=== PATIENT | female | born 1955 | race Caucasian/White ===

== ENCOUNTER 2023-01-30 12:45 | Emergency (ER) | payer MEDICARE, OTHER, SELFPAY ==
[2023-01-30 13:00] VITALS: BP 101/64; PULSE 113; RESP 16; TEMP 37.3; O2SAT 98; BMI 34.4
--- NOTE | 2023-01-30 13:36 | ED.GENADULT ---
HPI - General Adult General Date Seen: 01/30/23 Chief complaint: Abdominal Pain Stated complaint: Diverticulitis, possible perforated bowel Time Seen by Provider: 01/30/23 13:11 History of Present Illness HPI narrative: This is a very pleasant 67-year-old female with a past medical history including hypertension, colon polyps, previous esophageal stricture, sleep apnea, overweight, allergic rhinitis. She was referred to the ER today from the clinic at [facility]. She was diagnosed with perforated sigmoid diverticulitis on a CT scan done in the outpatient clinic today. HPI is that she did have symptoms of diarrhea that were few weeks ago, probably 3 weeks ago. This occurred while she was in the [facility]. Her is in the hospital after a major surgery. Since then her diarrhea has resolved but she has had ongoing fatigue. Not much abdominal pain. She is just feeling run down. Maybe mild discomfort in her left lower quadrant and suprapubic region. No fevers. She has lost about 10 lb because she has had poor appetite. No urinary symptoms. She has no previous history of diverticulitis. Laboratory workup in the [facility] today included: Urinalysis: Specific gravity 1.020 Trace bilirubin, trace ketones, negative nitrite, negative leukocyte esterase. 0-2 RBC, 3-5 WBC. Few bacteria. Moderate epithelial cells. White blood cell count 3.32., hemoglobin 10.0, platelet count 545. CT abdomen/pelvis stone protocol without contrast Printed report from [facility]. Gallbladder and bile ducts: Post cholecystectomy. No biliary ductal dilatation. Pancreas unremarkable. Spleen: Normal in size. No masses. Adrenal glands: Normal in size. No nodules. Kidneys: No hydronephrosis or hydroureter. No right renal or ureteral calculi. GI tract: Extensive sigmoid colon diverticula with bowel wall thickening and pericolonic inflammatory stranding in the pelvis. There is an irregular collection measuring 4.7 x 2.2 cm, which is greater than fluid attenuation, likely reflecting phlegmon. Foci of extraluminal gas is seen adjacent to the sigmoid colon. Concerning for perforation. There are scattered pericolonic sub cm lymph nodes. The appendix is not well visualized. Vasculature: Minimal atherosclerotic are aortic calcifications without aneurysmal dilatation. Lymph nodes: Scattered subcentimeter retroperitoneal lymph nodes. Peritoneum/abdominal wall: Small fat containing umbilical hernia. Pelvis: Bladder is decompressed. Uterus is surgically absent. Bones: Unremarkable for age. Severe multilevel degenerative disc disease involving the visualized thoracolumbar spine, most pronounced at L5-S1. Impression: 1. acute sigmoid colon diverticulitis with evidence of perforation. There is inflammatory stranding/phlegmon without definite organized abscess, although evaluation is limited on noncontrast exam. 2. No obstructing renal or ureteral calculi. 3. Hepatic steatosis. Related Data Home Medications Medication Instructions Recorded Confirmed atorvastatin 40 mg tablet 40 mg PO QPM 01/30/23 01/30/23 hydrochlorothiazide 25 mg tablet 25 mg PO DAILY 01/30/23 01/30/23 lisinopril 40 mg tablet 40 mg PO DAILY 01/30/23 01/30/23 metoprolol succinate 200 mg 200 mg PO DAILY 01/30/23 01/30/23 tablet,extended release 24 hr omeprazole 20 mg capsule,delayed 20 mg PO DAILY 01/30/23 01/30/23 release Allergies Allergy/AdvReac Type Severity Reaction Status Date / Time penicillin G Allergy Intermediate Rash Verified 01/30/23 12:59 PFSH PFS Social History Smoking Status: Never smoker Non-prescribed substance use: denies use Exam Narrative: Exam Narrative: Constitutional: Appears well-developed and well-nourished. Alert. Conversant. Non toxic. HENT: Head: Atraumatic. Nose: Nose normal. Mouth/Throat: Oral mucosa is clear and moist. no trismus. Pharynx normal. Tonsils symmetric. No tonsillar enlargement, erythema, or exudate. Eyes: Conjunctivae normal. EOM normal. Pupils equal, round, and reactive to light. No scleral icterus. Neck: Normal range of motion. Neck supple. No tracheal deviation present. Cardiovascular: Tachycardic, regular rhythm. No gallop. No friction rub. No murmur heard. Symmetric radial artery pulses Pulmonary/Chest: Effort normal. No stridor. No respiratory distress. No wheezes. No rales. No rhonchi . No tenderness. Abdominal: Soft. Bowel sounds normal. No distension. No mass. Left lower quadrant and suprapubic tenderness. No rebound. No guarding. Musculoskeletal: RUE: Normal range of motion. No tenderness. No deformity LUE: Normal range of motion. No tenderness. No deformity RLE: Normal range of motion. No edema. No tenderness. No deformity LLE: Normal range of motion. No edema. No tenderness. No deformity. no cva tenderness Neurological: Alert and oriented to person, place, and time. Normal strength. CN II-VII intact. No sensory deficit. GCS eye subscore is 4. GCS verbal subscore is 5. GCS motor subscore is 6. Normal coordination Skin: Skin is warm and dry. No rash noted. No pallor. Normal capillary refill. Psychiatric: Normal mood. Normal affect. Const: Vital Signs, click to edit/add: Vital Signs - 24 hr 01/30/23 13:00 01/30/23 16:07 Temperature 99.1 F 98.9 F Pulse Rate [Pulse Oximeter] 113 H 110 H Respiratory Rate 16 16 Blood Pressure [Ri ght Upper Arm] 101/64 154/99 H Pulse Oximetry 98 96 Oxygen Delivery Me thod Room Air Course Course ED Course: Patient arrived in his room to ER room 7. I reviewed the provided labs and CT report from [facility] see my HPI. Reevaluation(s) Reevaluation #1: Discussed the surgery, Dr. Harrington. She has been able to review the images remotely in feels that the patient would be appropriate for admission here for IV antibiotics and observation. The patient would be at risk for progression to hyun abscess and may ultimately need surgery. However no clear abscess today and initial step would be admission for IV antibiotics. Agrees with Carly, given allergy. Reevaluation #2: Discussed with Dr. Fitzgerald, hospitalist. She will graciously admit to the medical floor for IV fluids, IV antibiotics, surgery consultation, monitoring. Reevaluation #3: Patient's daughter and arrived. I had a discussion with the patient, her , her daughter. After some extended conversation between the 4 of us as well as an extended family conversation, the patient's 2 daughters have expressed their firm desire that they want to have her mother transferred to a bigger facility, such as [facility]. I contacted [facility] transfer center. Discussed with the transfer center and me requested a medical bed for medical admission for IV antibiotics. Unfortunately there are no open beds at this time and the patient is placed on the wait list. The transfer center at cannot tell me how many other patients are head of my patient, but there are, ?quite a few ? And that most likely there will not be an available bed at any [facility] site toda. possibly tomorrow though. She has received her 1st dose of Cipro. Flagyl now beginning. Updated the patient and her family. They had another family meeting. Her daughter's really would like her to be at [facility], and not here in [place]. We discussed the wait list and the current status of transfer (waiting for a bed). I offered that we could still go ahead and admit the patient here to our medical floor overnight tonight for IV antibiotics, monitoring, comfort, while we keep her on the wait list for [facility]. We could transfer tomorrow if/when a bed at [facility] becomes available. However, the patient's family are insisting on transferring as soon as possible this afternoon. They would at least agree to have her mother stay here long enough to finish up her 1st dose of IV antibiotics. I discussed that I cannot do a direct ER to ER transfer for this indication. There is not a medical emergency necessitating an immediate ER to ER transfer, and that direct transfer to the ER just to avoid the wait list is not typical. We also had an honest discussion that there would likely be a many hour wait in the lobby of the [facility] ER before they could even be seen by a provider. After that they would likely have a many hour wait in the ER at [place] before they can be admitted to a medical bed. We discussed that her next dose of Flagyl would be about 6 hours from now, and that subsequent doses are antibiotic might be delayed while she is in the lobby at [place]. Nonetheless, her family are firm that they want to transfer by private car as soon as possible. They do not want to wait. It is clear that the patient and her family are medically savvy and have medical decision-making capacity to refuse my recommended admission here at [place]. They also seem very reliable. I am confident that they will go directly to the ER at [place] to begin the process of being admitted there. We agree that it would be reasonable to leave her current saline lock in place so that she can have her further workup and antibiotics. I contacted the [facility] access center again. I updated them about the status of the patient's transfer. The access center understands that the patient and her family are choosing to leave [facility] and go directly to the [facility] ER. I also requested to give a doctor to doctor direct report to the ED providers at [facility]. I was transferred through to the [facility] Emergency Department and discussed with 1 of their clinics. They declined to give me access to a provider for a doc to doc report. We will provide printed copies of the patient's labs to go with her. The patient's CT scan was done today in in [facility] clinic so that should be visible electronically to the providers at [place]. At this point the patient remains tachycardic with sinus tach. However blood pressure is stable. Lactic [place] [address], consistent with infection of perforated diverticulitis. There certainly would be some risk with transferring by private car and anticipated long wait in the ER, given the potential for developing sepsis and subsequent cardiovascular deterioration. Nonetheless, patient and her family have medical decision-making capacity and they are requesting to be discharged as soon as possible from the ER here in [place] so they can go to [facility]. I updated our surgeon, Dr. Antoine and our hospitalist, Dr. Fitzgerald Vital Signs Vital signs: Initial Vital Signs Temperature 99.1 F 01/30/23 13:00 Temperature Source Temporal Artery Scan 01/30/23 13:00 Pulse Rate 113 H 01/30/23 13:00 Pulse Rhythm Regular 01/30/23 13:00 Respiratory Rate 16 01/30/23 13:00 Blood Pressure 101/64 01/30/23 13:00 Blood Pressure Mean 76 01/30/23 13:00 Blood Pressure Position Sitting 01/30/23 13:00 Pulse Oximetry 98 01/30/23 13:00 Oxygen Delivery Method Room Air 01/30/23 13:00 Vital Signs Temperature 99.1 F 01/30/23 13:00 Pulse Rate 113 H 01/30/23 13:00 Respiratory Rate 16 01/30/23 13:00 Blood Pressure 101/64 01/30/23 13:00 Pulse Oximetry 98 01/30/23 13:00 Oxygen Delivery Method Room Air 01/30/23 13:00 Temperature 98.9 F 01/30/23 16:07 Pulse Rate 110 H 01/30/23 16:07 Respiratory Rate 16 01/30/23 16:07 Blood Pressure 154/99 H 01/30/23 16:07 Pulse Oximetry 96 01/30/23 16:07 Oxygen Delivery Method Room Air 01/30/23 13:00 Medical Decision Making MDM Narrative Medical decision making narrative: This is a very pleasant 67-year-old female sent to the ER today with lab and CT confirmed sigmoid diverticulitis associated with perforation and phlegmon formation. She was tachycardic but normotensive. Lactic acid normal . She received IV fluid bolus and initial broad-spectrum antibiotics here in the ER for her intra-abdominal infection. Discussed with our surgeon and our hospitalist. Plan was to admit here for IV fluids and IV antibiotics with careful observation. Surgery says no immediate indication for operative intervention. There is risk that she may ultimately need surgery or IR drainage, depending on her her illness/phlegmon progress. Patient initially verbalized her consent to be admitted here in [place]. Subsequently her family arrived. They have requested transfer to a larger facility. We contacted [facility]. There was a long wait list for patients and no beds available today. Therefore her family have insisted on expeditious discharge from the ER here in [place]. They will take the patient by private car and check her into the ER at [facility]. They do not want us to keep her here in the ER or in the hospital in [place] overnight for fluids and antibiotics/initial phase of management. They want to transfer right away this afternoon. It will transfer by private car. I agreed it was appropriate to leave her IV and, since she will certainly need further fluids and antibiotics when she arrives. Lab Data Labs: Lab Results 01/30/23 Range/Units 13:15 WBC 21.93 H (4.50-11.00) K/uL RBC 3.53 L (4.00-5.20) m/uL Hgb 10.5 L (12.0-16.0) gm/dL Hct 32.7 L (33.0-51.0) % MCV 93 (80-100) fL MCH 30 (26-34) pg MCHC 32 (32-36) gm/dL RDW Coeff of Jailyn 12.9 (11.5-15.5) % Plt Count 603 H (140-440) K/uL Neut % (Auto) 78.2 H (42.0-72.0) % Lymph % (Auto) 11.0 L (20-44) % Tate % (Auto) 9.5 (0.0-11.0) % Eos % (Auto) 0.0 (0.0-7.0) % Baso % (Auto) 0.2 (0.0-3.0) % Neut # (Auto) 17.10 H (1.7-7.0) K/uL Lymph # (Auto) 2.40 (0.90-2.90) K/uL Tate # (Auto) 2.10 H (0.00-0.90) K/UL Eos # (Auto) 0.00 (0.00-0.50) K/uL Baso # (Auto) 0.00 (0.00-0.30) K/uL Abs Immat Gran (auto) 0.20 (0.00-0.30) K/uL Imm/Tot Granulo (auto) 1.1 % Diff Slide Review Acceptable Review (Acceptable) Sodium 134 L (135-149) mmol/L Potassium 4.0 (3.6-5.1) mmol/L Chloride 93 L (96-114) mmol/L Carbon Dioxide 26 (20-32) mmol/L Anion Gap 15 (7-15) mEq/L BUN 25 (7-30) mg/dL Creatinine 1.6 H (0.5-1.5) mg/dL Estimated Creat Clear 26.62 Estimated GFR 35 ml/min Glucose 129 H (60-115) mg/dL Lactate 1.4 (0.5-1.9) mmol/L Calcium 10.0 (8.4-10.6) mg/dL ECG Data Attestation: I personally reviewed and interpreted this ECG as follows: Interpretation: Sinus tachycardia. Rate 103 [place] 152 QRS axis normal axis. No pathologic Q-waves. ST segment/T wave: No ST segment elevation or depression. QTc: 419 Discharge Plan Discharge Clinical Impression: Diverticulitis, Diverticulitis of colon with perforation Patient Disposition: Home, Self-Care Condition: Guarded Instructions: Diverticulitis (ED) Additional Instructions: Please go directly to the emergency department at [facility]. you will have to check into the ER to be seen by the ER doctors there. He also please do not eat or drink until after you are evaluated at [facility]. If you run into troubles, you can always return to the ER here at [place] Prescriptions: No Action atorvastatin 40 mg tablet 40 mg PO QPM metoprolol succinate 200 mg tablet extended release 24 hr 200 mg PO DAILY omeprazole 20 mg capsule,delayed release(DR/EC) 20 mg PO DAILY hydrochlorothiazide 25 mg tablet 25 mg PO DAILY lisinopril 40 mg tablet 40 mg PO DAILY Follow Up/Referrals: Provider,Not a Local [Primary Care Provider] - Stand Alone Forms: [employer] Info Instructions
[2023-01-30 13:41] LABS: Lactate* 1.4 mmol/L (0.5-1.9)
[2023-01-30] MEDS: 0.9 % SODIUM CHLORIDE 1000 ml 1,000 ML IV (13:48)
[2023-01-30 13:49] LABS: Basophils Percent Auto 0.2 % (0.0-3.0); Hematocrit 32.7 % (33.0-51.0); Hemoglobin* 10.5 gm/dL (12.0-16.0); Immature Granulocytes Pct Auto 1.1 %; Mean Corpuscular HGB Conc 32 gm/dL (32-36); Mean Corpuscular Hemoglobin 30 pg (26-34); Mean Corpuscular Volume 93 fL (80-100); Monocytes Percent Auto 9.5 % (0.0-11.0); Neutrophils Percent Auto 78.2 % (42.0-72.0); Platelet Count* 603 K/uL (140-440); RDW Coefficient of Variation % 12.9 % (11.5-15.5); Red Blood Count 3.53 m/uL (4.00-5.20); White Blood Count* 21.93 K/uL (4.50-11.00)
[2023-01-30 13:51] LABS: Slide Review Reflex Yes
[2023-01-30 13:59] LABS: Chloride* 93 mmol/L (96-114)
[2023-01-30 14:00] LABS: Sodium* 134 mmol/L (135-149)
[2023-01-30 14:02] LABS: Anion Gap 15 mEq/L (7-15); Carbon Dioxide* 26 mmol/L (20-32); Creatinine* 1.6 mg/dL (0.5-1.5); Est. Creatinine Clearance* 26.62; Estimated Glomerular Filt Rate 35 ml/min
[2023-01-30 14:03] LABS: Blood Urea Nitrogen* 25 mg/dL (7-30); Glucose* 129 mg/dL (60-115)
[2023-01-30] MEDS: CIPROFLOXACIN 400 MG/200 ML PIGGYBACK 200 MG IVPB (14:06)
[2023-01-30 14:23] LABS: Slide Review Acceptable Review (Acceptable)
--- NOTE | 2023-01-30 14:58 | P.GSCN_ITS ---
History of Present Illness Consult details Consult date: 01/30/23 [facility] Social History Smoking Status: Never smoker Non-prescribed substance use: denies use Meds Home Medications and Allergies Home Medications Medication Instructions Recorded Confirmed Type atorvastatin 40 mg tablet 40 mg PO QPM 01/30/23 01/30/23 History hydrochlorothiazide 25 mg tablet 25 mg PO DAILY 01/30/23 01/30/23 History lisinopril 40 mg tablet 40 mg PO DAILY 01/30/23 01/30/23 History metoprolol succinate 200 mg 200 mg PO DAILY 01/30/23 01/30/23 History tablet,extended release 24 hr omeprazole 20 mg capsule,delayed 20 mg PO DAILY 01/30/23 01/30/23 History release Allergies Allergy/AdvReac Type Severity Reaction Status Date / Time penicillin G Allergy Intermediate Rash Verified 01/30/23 12:59 Exam Const: Vital Signs, click to edit/add: Vital Signs - 24 hr 01/30/23 13:00 Temperature 99.1 F Pulse Rate [Pulse Oximeter] 113 H Respiratory Rate 16 Blood Pressure [Ri ght Upper Arm] 101/64 Pulse Oximetry 98 Oxygen Delivery Me thod Room Air Results Labs Labs: Abnormal lab results 01/30/23 Range/Units 13:15 WBC 21.93 H (4.50-11.00) K/uL RBC 3.53 L (4.00-5.20) m/uL Hgb 10.5 L (12.0-16.0) gm/dL Hct 32.7 L (33.0-51.0) % Plt Count 603 H (140-440) K/uL Neut % (Auto) 78.2 H (42.0-72.0) % Lymph % (Auto) 11.0 L (20-44) % Neut # (Auto) 17.10 H (1.7-7.0) K/uL [place] # (Auto) 2.10 H (0.00-0.90) K/UL Sodium 134 L (135-149) mmol/L Chloride 93 L (96-114) mmol/L Creatinine 1.6 H (0.5-1.5) mg/dL Glucose 129 H (60-115) mg/dL Diabetes panel 01/30/23 Range/Units 13:15 Sodium 134 L (135-149) mmol/L Potassium 4.0 (3.6-5.1) mmol/L Chloride 93 L (96-114) mmol/L Carbon Dioxide 26 (20-32) mmol/L BUN 25 (7-30) mg/dL Creatinine 1.6 H (0.5-1.5) mg/dL Glucose 129 H (60-115) mg/dL Calcium 10.0 (8.4-10.6) mg/dL Calcium panel 01/30/23 Range/Units 13:15 Calcium 10.0 (8.4-10.6) mg/dL Pituitary panel 01/30/23 Range/Units 13:15 Sodium 134 L (135-149) mmol/L Potassium 4.0 (3.6-5.1) mmol/L Chloride 93 L (96-114) mmol/L Carbon Dioxide 26 (20-32) mmol/L BUN 25 (7-30) mg/dL Creatinine 1.6 H (0.5-1.5) mg/dL Glucose 129 H (60-115) mg/dL Calcium 10.0 (8.4-10.6) mg/dL Adrenal panel 01/30/23 Range/Units 13:15 Sodium 134 L (135-149) mmol/L Potassium 4.0 (3.6-5.1) mmol/L Chloride 93 L (96-114) mmol/L Carbon Dioxide 26 (20-32) mmol/L BUN 25 (7-30) mg/dL Creatinine 1.6 H (0.5-1.5) mg/dL Glucose 129 H (60-115) mg/dL Calcium 10.0 (8.4-10.6) mg/dL All other labs normal.
[2023-01-30] MEDS: metroNIDAZOLE 500 MG/100 ML PIGGYBACK 100 MG IVPB (15:24)
[2023-01-30 16:07] VITALS: BP 154/99; PULSE 110; RESP 16; TEMP 37.2; O2SAT 96
--- NOTE | 2023-01-30 17:12 | ED.NURSE ---
Called to the [facility] ER to let charge nurse know to expect patient as she is traveling there via private vehicle with her daughter.
== END 2023-01-30 17:43 | disposition home or self-care (01) ==
PROVIDERS: Emergency Provider Emergency Medicine
DX: K57.20 Diverticulitis of large intestine with perforation and abscess without bleeding (principal)
CPT/HCPCS: 36415; 80048; 83605; 85025; 87040; 93005; 96365; 96366; 99284; J0744; J7030; S0030

== ENCOUNTER 2023-03-18 10:59 | Emergency (ER) | payer MEDICARE, OTHER, SELFPAY ==
[2023-03-18 11:02] VITALS: BP 175/70; PULSE 73; RESP 20; TEMP 36.5; O2SAT 97; BMI 34.4
--- NOTE | 2023-03-18 11:07 | CRLHL7_ITS ---
For Patients: As a result of the Cures Act, medical imaging exams and procedure reports are released immediately into your electronic medical record. You may view this report before your referring provider. If you have questions, please contact your health care provider. INDICATION: Fall. TECHNIQUE: Chest and right ribs 3 views. COMPARISON: None available. FINDINGS: Cardiovascular and mediastinum: Heart size is normal. Mediastinum is within normal limits. Lungs and pleural spaces: Mild linear atelectasis in the right lung base. No focal pulmonary opacity. No sign of pleural effusion. No pneumothorax. Bones and soft tissues: Detailed oblique images of the right ribs demonstrate no fractures or bone lesions. Cholecystectomy clips are IMPRESSION: No evidence of acute rib fracture. No acute cardiopulmonary abnormality. Dictated by Vonda Valentin MD @ 03/18/2023 11:40:07 AM (Electronically Signed)
--- NOTE | 2023-03-18 11:07 | ED.GENADULT ---
HPI - General Adult General Time Seen by Provider: 11:08 Date Seen: 03/18/23 Chief complaint: Rib Pain Stated complaint: Fell two days ago, pain on R hip/leg Time Seen by Provider: 03/18/23 11:01 Source: patient Mode of arrival: ambulatory Limitations: no limitations History of Present Illness HPI narrative: Patient is a 59 year white female 2 days ago fell getting out of bed and landed against a table she hit her right lower chest wall area. She has had no trouble breathing but continues to have pain in that area there is a small bruise in her posterior axillary line just above the lower ribcage area. She denies back pain, denies pelvic or hip pain denies lower extremity symptoms. Her only complaint presently is her ribcage area. No difficulty breathing. Related Data Home Medications Medication Instructions Recorded Confirmed atorvastatin 40 mg tablet 40 mg PO QPM 01/30/23 01/30/23 hydrochlorothiazide 25 mg tablet 25 mg PO DAILY 01/30/23 01/30/23 lisinopril 40 mg tablet 40 mg PO DAILY 01/30/23 01/30/23 metoprolol succinate 200 mg 200 mg PO DAILY 01/30/23 01/30/23 tablet,extended release 24 hr omeprazole 20 mg capsule,delayed 20 mg PO DAILY 01/30/23 01/30/23 release Previous Rx's Medication Instructions Recorded tramadol 100 mg tablet 100 mg PO BID PRN pain #10 tabs 03/18/23 Allergies Allergy/AdvReac Type Severity Reaction Status Date / Time penicillin G Allergy Intermediate Rash Verified 01/30/23 12:59 Review of Systems Status of ROS: Reports: 6 or more systems reviewed and unremarkable except as noted in History and below [facility] Social History Smoking Status: Never smoker How often do you have a drink containing alcohol: never AUDIT-C Alcohol total score: 0 Non-prescribed substance use: denies use Exam Narrative: Exam Narrative: Objective: Patient has excellent O2 sat she is breathing normally She has a small bruise but no crepitus over the right posterior axillary line just above the lower ribcage area abdomen is benign, nontender Back exam unremarkable She is tender on the area the bruise. Const: Vital Signs, click to edit/add: Vital Signs - 24 hr 03/18/23 11:02 Temperature 97.7 F Pulse Rate [Right Pulse Oximeter] 73 Respiratory Rate 20 Blood Pressure [Ri ght Upper Arm] 175/70 H Pulse Oximetry 97 Oxygen Delivery Me thod Room Air Course Vital Signs Vital signs: Initial Vital Signs Temperature 97.7 F 03/18/23 11:02 Temperature Source Temporal Artery Scan 03/18/23 11:02 Pulse Rate 73 03/18/23 11:02 Respiratory Rate 20 03/18/23 11:02 Blood Pressure 175/70 H 03/18/23 11:02 Blood Pressure Mean 105 03/18/23 11:02 Blood Pressure Position Sitting 03/18/23 11:02 Pulse Oximetry 97 03/18/23 11:02 Oxygen Delivery Method Room Air 03/18/23 11:02 Vital Signs Temperature 97.7 F 03/18/23 11:02 Pulse Rate 73 03/18/23 11:02 Respiratory Rate 20 03/18/23 11:02 Blood Pressure 175/70 H 03/18/23 11:02 Pulse Oximetry 97 03/18/23 11:02 Oxygen Delivery Method Room Air 03/18/23 11:02 Temperature 97.7 F 03/18/23 11:02 Pulse Rate 73 03/18/23 11:02 Respiratory Rate 20 03/18/23 11:02 Blood Pressure 175/70 H 03/18/23 11:02 Pulse Oximetry 97 03/18/23 11:02 Oxygen Delivery Method Room Air 03/18/23 11:02 Medical Decision Making MDM Narrative Medical decision making narrative: [age] year white female fell against a table couple days ago with now right rib cage tenderness will check an x-ray of her ribs and chest and lungs. Do rib detail. Disposition pending findings. Likely symptomatic management with anti-inflammatories and ice and limited range of motion and activity but deep breathing recommended. Discharge Plan Discharge Clinical Impression: Chest wall contusion Patient Disposition: Home w/ Parent or Adult Condition: Stable Additional Instructions: Light activity recommended, ice to the chest wall, Advil or Aleve as needed, he can use Tylenol with that as well. Recheck the regular doctor as needed.tramadol as needed. Activity Level: Light activity Discharge Diet: Regular Prescriptions: New tramadol 100 mg tablet 100 mg PO BID PRN (Reason: pain) Qty: 10 0RF No Action atorvastatin 40 mg tablet 40 mg PO QPM metoprolol succinate 200 mg tablet extended release 24 hr 200 mg PO DAILY omeprazole 20 mg capsule,delayed release(DR/EC) 20 mg PO DAILY hydrochlorothiazide 25 mg tablet 25 mg PO DAILY lisinopril 40 mg tablet 40 mg PO DAILY Follow Up/Referrals: Provider,Not a Local [Primary Care Provider] - Stand Alone Forms: [employer] Info Instructions
== END 2023-03-18 11:50 | disposition home or self-care (01) ==
PROVIDERS: Emergency Provider Family Medicine
DX: S20.211A Contusion of right front wall of thorax, initial encounter (principal); W01.10XA Fall on same level from slipping, tripping and stumbling with subsequent striking against unspecified object, initial encounter
CPT/HCPCS: 71101; 99283; 99284